=== PATIENT | male | born 1935 | race Caucasian/White ===

== ENCOUNTER 2020-12-25 18:50 | Inpatient (IN) | payer MEDICARE, OTHER, SELFPAY ==
--- NOTE | 2020-12-18 09:16 | EKG12_ITS ---
Test Reason : PRE OP Blood Pressure : / mmHG Vent. Rate : 066 BPM Atrial Rate : 066 BPM P-R Int : 142 ms QRS Dur : 082 ms QT Int : 398 ms P-R-T Axes : -18 001 026 degrees QTc Int : 417 ms Normal sinus rhythm Normal ECG Confirmed by YESSICA CARMONA, SHENG ([id number]), editor at large ALEENA RIVERA ([id number]) on 12/22/2020 8:57:33 AM Referred By: Rusty Miles Confirmed By:DAVIDA JUAN MD
[2020-12-18 10:37] LABS: Mean Corp Hgb Conc 33.3 g/dL (32-36); Mean Corpuscular Hgb 30.7 pg (27.0-32.0); Mean Corpuscular Volume 92.1 fL (80-94); Mean Platelet Vol. 12.5 fl (6.2-12.0); Platelet Count 138 K/mm3 (150-450); RBC Distribution Width CV 13.8 % (11.6-14.6); RBC Distribution Width SD 47.3 fl (35.1-43.9); Red Blood Count 4.56 M/mm3 (4.6-6.2); White Blood Count 6.4 K/mm3 (4.4-11.0)
[2020-12-18 10:49] LABS: International Normalized Ratio 1.1; Partial Thromboplast Time 31.6 Seconds (24.1-36.2); Prothrombin Time (Protime)PT. 13.2 SECONDS (11.7-14.9)
[2020-12-18 11:03] LABS: AST(SGOT) 32 U/L (15-37); Alanine Aminotransfer ALT/SGPT 42 U/L (16-61); Albumin, Serum 3.7 g/dL (3.2-5.0); Alkaline Phosphatase 89 U/L (45-117); Anion Gap 5 (5-15); BUN 18 mg/dL (7-18); BUN/Creat Ratio 27.4 RATIO (10-20); Bilirubin, Direct 0.27 mg/dL (0.00-0.30); Calcium,Total 9.3 mg/dL (8.5-10.1); Chloride 105 mmol/L (98-107); Creatinine, Serum 0.66 mg/dL (0.70-1.30); EST Glomerular Filtration Rate 123 mL/min (>60); Est Glom Filt Rate - Afr Amer 149 mL/min (>60); Globulin 3.7 g/dL (2.2-4.2); Glucose 109 mg/dL (74-106); Potassium 4.2 mmol/L (3.5-5.1); Protein, Total 7.4 g/dL (6.4-8.2); Sodium Level 141 mmol/L (136-145)
[2020-12-24] VITALS (10 sets, daily range): BP systolic 131–157; BP diastolic 64–83; PULSE 63–77; RESP 14–16; TEMP 36.6–36.8; O2SAT 92–100; BMI 38.5
--- NOTE | 2020-12-24 | PROS_PTH ---
PATIENT: RENATO RANGEL LOC: [facility] U#:[id number] AGE/SX: 85/M ROOM: SC317 RE12/25/[address]: Dr. Rusty Miles MD : 1935 BED: 1 DIS: 12/26/2020 SPEC #: [id number] RECD: 12/25/20 06:54 STATUS: KASSIDY MUSTAFA #: [id number] VIRA: 12/24/20 00:[address]: Rusty Miles DEPT: SURGICAL PATHOLOGY RECD BY: Sundar Quiles ENTERED: 12/25/20 08:22 SP TYPE: TURP OTHR DR: Dr. Socrates Irving MD Tissues: Prostate, NOS Procedures: Surgery Specimen Level IV HEADER OPERATION: Cysto, TUR prostate, Olympus PRE-OP DIAGNOSIS: BPH with obstruction TISSUE SUBMITTED: Prostate tissue MICROSCOPIC DIAGNOSIS Prostate tissue, TUR: Benign prostatic hyperplasia, glandular and stromal type. Focal mild chronic inflammation. SJ:kleber 12/26/2020 MICROSCOPIC DESCRIPTION Slides are reviewed. GROSS DESCRIPTION Received is one container labeled with the patient's name and designated prostate tissue. The specimen consists of multiple irregular fragments of pink-bajwa, rubbery, soft tissue that in aggregate weigh 21.1 gm and measure in aggregate 7 x 7 x 2.5 cm. Sustainability Coordinator tissue is submitted in 12 cassettes. / EARL:kleber 12/25/20 TC:5 CPT: 56343
[2020-12-24] MEDS: Lactated Ringers 1,000 ML 100 ML IV (10:06)
[2020-12-24] MEDS: Lubricating Jelly 60 GM Tube 30 GM TOPICAL (11:41)
[2020-12-24] MEDS: Cefazolin 2 GM in 0.9% Normal Saline 100 ML IV (11:45)
--- NOTE | 2020-12-24 12:58 | PCM.HP.STD ---
HPI - General HPI Narrative RENATO RANGEL, is a 85 M who presents significant BPH and obstruction today presents for transurethral resection of the prostate [facility] Medical History (Updated 12/24/20 @ 12:[address] Rusty Miles MD) Easy bruising Former smoker Hearing impairment High cholesterol History of COVID-19 History of echocardiogram Hypertension Prostate disease TIA (transient ischemic attack) Trigeminal neuralgia Wears glasses Home Medications B12 Active 1,000 mcg PO QHS 12/17/20 [History Last Taken Unknown] amlodipine 5 mg PO DAILY 12/17/20 [History Last Taken 12/24/20] aspirin 81 mg PO QHS 12/17/20 [History Last Taken 12/23/20] atorvastatin 40 mg PO QHS 12/17/20 [History Last Taken Unknown] baclofen 10 mg PO QHS 12/17/20 [History Last Taken Unknown] finasteride 5 mg PO QHS 12/17/20 [History Last Taken Unknown] gabapentin 600 mg PO TID 12/17/20 [History Last Taken 12/24/20] iron 1 tab PO DAILY 12/17/20 [History Last Taken Unknown] ciprofloxacin HCl [Cipro] 500 mg PO BID #14 tab 12/24/20 [Rx Last Taken Unknown] Allergy/AdvReac Type Severity Reaction Status Date / Time No Known Allergies Allergy Verified 12/24/20 09:42 Surgical History (Updated 12/17/20 @ 12:58 by Niurka Iqbal) History of appendectomy History of colonoscopy History of hernia repair History of melanoma excision Social History Smoking Status: Former smoker ROS Constitutional Constitutional: Denies chills, fever(s) or malaise Eyes Eyes: Denies blurry vision or change in vision ENT HEENT: Reports none Cardiovascular Cardiovascular: Denies chest pain or palpitations Respiratory/Chest Respiratory/Chest: Denies cough or shortness of breath with exertion Gastrointestinal Gastrointestinal: Denies abdominal pain, constipation or diarrhea Musculoskeletal Musculoskeletal: Denies back pain, joint stiffness or joint swelling Integumentary Integumentary: Denies dry skin, jaundice, lesions or rash Neurologic Neurologic: Denies confusion, syncope or weakness Psychiatric Psychiatric: Reports none; Denies anxiety or depression Endocrine Endocrinology: Denies excessive sweating, fatigue or flushing Hematologic/Lymphatic Hematologic/Lymphatic: Denies anemia, easy bleeding or easy bruising Vital Signs Vital Signs Vital Signs: 12/24/20 09:44 Temperature 98.2 F Temperature Source Temporal Pulse Rate 71 Respiratory Rate 16 Respiratory Pattern Normal Blood Pressure 146/83 H Blood Pressure Mean 104 Blood Pressure Source Monitor Blood Pressure Position Semi-Fowlers Blood Pressure Location Left Arm Pulse Ox 97 Oxygen Delivery Method Room Air Weight Weight: 118.4 kg Body Mass Index (BMI) 38.5 Physical Exam Const alert and oriented x3 General Appearance: cooperative HEENT normocephalic, head/scalp atraumatic, EAC's normal and TM's normal bilaterally Eyes PERRL and EOMs intact bilaterally Pupil: sluggish Neck no lymphadenopathy, supple and no JVD General: trachea midline Lymph Lymphatic: no lymphadenopathy noted, lymphedema and lymphadenopathy Resp normal respiratory effort, normal air movement and clear to auscultation bilaterally Cardio regular rate, regular rhythm and peripheral pulses 2+ throughout GI soft to palpation, non-tender and non-distended Extremity normal capillary refill and no clubbing, cyanosis or edema General Extremity: no tenderness to palpation of joints or extremities Skin no rashes or lesions noted General Skin Exam: turgor normal Lesions: no lesions Rashes: no rashes Neuro CN's II-XII intact bilaterally Speech: speech normal Motor Exam: strength 5/5 throughout; Negative for general weakness Psych thought process normal, cooperative and affect normal Appearance: appropriate Results Lab / Micro Data Result Diagrams: 12/18/20 09:27 12/18/20 09:27 Assessment & Plan Assessment/Plan (1) BPH w urinary obs/LUTS: PLAN: Plan for TURP
--- NOTE | 2020-12-24 12:59 | PCM.DC ---
Discharge Instructions Diet Discharge Diet: No restrictions Activity Discharge Activity: Return to Normal Activity and May Not Drive (while taking narcotic pain medications.) Dressing / Incision Call your doctor if your incision/area has: Continuous Slow Oozing, Increased Pain/ Swelling, Increased Redness and Foul Smelling Discharge Call your doctor if you observe: Fever of 101 or Higher, Numbness or Tingling, Shortness of breath, Dizziness, Calf discomfort and Uncontrolled pain Follow Up Care Please Follow Up With: Rusty Miles MD When: Call [phone] for an appointment Test Results: Test results from this visit will be discussed in further detail at your follow-up appointment, if applicable. Discharge Plan Admission Primary Reason for Your Visit: vicki Attending Provider: Rusty Miles Primary Care Provider: Socrates Irving Discharge Orders/Prescriptions Prescriptions: New ciprofloxacin HCl [Cipro] 500 mg tablet 500 mg PO BID Qty: 14 RF: 0 Continued atorvastatin 40 mg tablet 40 mg PO QHS RF: 0 gabapentin 600 mg tablet 600 mg PO TID RF: 0 iron 50 mg iron Tablet 1 tab PO DAILY RF: 0 amlodipine 5 mg tablet 5 mg PO DAILY RF: 0 baclofen 10 mg tablet 10 mg PO QHS RF: 0 aspirin 81 mg Tablet 81 mg PO QHS RF: 0 finasteride 5 mg tablet 5 mg PO QHS RF: 0 B12 Active 1,000 mcg Tablet,Chewable 1,000 mcg PO QHS RF: 0 Referrals / Follow Up: Socrates Irving MD [Primary Care Provider] - Rusty Miles MD [STAFF PHYSICIAN] - Disposition Disposition (needs filled in before D/C Order can be placed): Home, Self Care
--- NOTE | 2020-12-24 13:00 | PCM.OPRPT ---
Report of Operation Date of Procedure: 12/24/20 Pre-Operative Diagnosis: BPH with obstruction Post-Operative Diagnosis: Same Surgery/Procedure Performed:: Transurethral section prostate Description of Surgical Findings:: In the preoperative setting I discussed with the patient how the surgery would be done with expect afterwards. We discussed how a prostate resection is done and we discussed the risk of the surgery including, bleeding, infection, retrograde ejaculation, changes with ejaculation or intercourse,. We discussed the possibility that the resection of the prostate may not alleviate his urinary symptoms. We discussed the small risk of developing scar tissue along the urethral channel and strictures. We also discussed the chance of the prostate could grow back and he may need further surgery or treatment in the future for prostate problems. Patient was taken back to the operating room, timeout procedure was performed, he was identified and marked and placed on the operating room table. He underwent general anesthesia. He was placed in dorsolithotomy position. Penis and testicles were prepped and draped in usual sterile fashion. Went into the bladder using the visual obturator with a resectoscope. Once inside the bladder identified the right and left ureteral orifice. I then identified the prostate and the anatomy of the prostate. I marked out the area of the sphincter and the verumontanum was identified. I then proceeded with the prostate resection first resected the median lobe. And then resected the right lobe of the prostate. Then to resect the left lobe of the prostate. I then resected the apical tissue of the prostate. Made sure that there was no injury to the sphincter or the verumontanum was still intact. At the end of the resection all the chips were Ellik out of the bladder. I then identified the left and right ureteral orifice and these were confirmed to be in good position and effluxing and not injured. The resectoscope was removed, a 22 Armenian catheter was placed into the bladder on continuous irrigation. And the urine was fairly light pink color and draining normally. He was taken back to the PACU in good condition. Surgeon: Rusty Miles Type of Anesthesia: General Drains: 22fr [address] way Complications none Admit VTE Documentation VTE Present on Admission: No VTE Mechan Device Prophylaxis: SCD's
[2020-12-24] MEDS: Lactated Ringers 1,000 ML 125 ML IV ×2 (14:00→18:38)
[2020-12-24] MEDS: Gabapentin 600 MG Tablet PO ×2 (15:39→16:22)
[2020-12-24] MEDS: Ciprofloxacin 400 MG/200 ML BAG 200 MG IV (19:55)
[2020-12-24] MEDS: Gabapentin 600 MG Tablet 1200 MG PO (21:19)
[2020-12-24] MEDS: Baclofen 10 MG Tablet PO (21:19)
[2020-12-24] MEDS: Atorvastatin Calcium 40 MG Tablet PO (21:19)
[2020-12-25 03:00] VITALS: BP 154/74; PULSE 64; RESP 18; TEMP 36.6; O2SAT 96
[2020-12-25] MEDS: Lactated Ringers 1,000 ML 125 ML IV (03:28)
[2020-12-25] MEDS: Gabapentin 600 MG Tablet 1200 MG PO ×3 (05:36→22:43)
[2020-12-25] MEDS: Ciprofloxacin 400 MG/200 ML BAG 200 MG IV (07:19)
[2020-12-25] MEDS: amLODIPine 5 MG Tablet PO (07:19)
[2020-12-25 07:32] VITALS: BP 132/68; PULSE 63; RESP 16; TEMP 36.6; O2SAT 98
--- NOTE | 2020-12-25 07:43 | PCM.PN.BLA ---
Progress Note urine still bloody will have nursing staff slow CBI today if possible once bleeding stop may d/c kuhn
[2020-12-25 11:28] VITALS: BP 129/63; PULSE 65; RESP 16; TEMP 36.6; O2SAT 96
[2020-12-25] MEDS: Ferrous Sulfate 325 MG Tablet PO (14:07)
[2020-12-25 14:47] VITALS: BP 143/65; PULSE 68; RESP 14; TEMP 36.5; O2SAT 96
--- NOTE | 2020-12-25 18:00 | NURSING ---
1645-cbi clamped. urine clear lt red, no clots.
--- NOTE | 2020-12-25 18:47 | NURSING ---
attempted to change to inpatient as of 1814. msg at [phone] (dr javier), that i was calling from [facility] [place] and needed assistance with a status change, i would be leaving shortly but he could speak w/charge nurse jimbo and left unit phone #
[2020-12-25 21:00] VITALS: BP 148/62; PULSE 66; RESP 18; TEMP 36.6; O2SAT 98
[2020-12-25] MEDS: Atorvastatin Calcium 40 MG Tablet PO (22:43)
[2020-12-25] MEDS: Cyanocobalamin 500 MCG Tablet 1000 MCG PO (22:43)
[2020-12-25] MEDS: Baclofen 10 MG Tablet PO (22:43)
[2020-12-25] MEDS: Aspirin 81 MG TAB.CHEW PO (22:44)
[2020-12-25] MEDS: Psyllium 1 PACKET PO (22:46)
[2020-12-26 03:00] VITALS: BP 138/60; PULSE 86; RESP 16; TEMP 36.4; O2SAT 97
[2020-12-26] MEDS: Gabapentin 600 MG Tablet 1200 MG PO ×2 (06:04→13:27)
--- NOTE | 2020-12-26 06:37 | PCM.PN.BLA ---
Progress Note Status post TURP Wakefield catheter removed yesterday in the evening he has been urinating okay. A little bit of urge incontinence but this is expected after surgery. He should be will go home today without a catheter.
[2020-12-26 07:26] VITALS: BP 134/66; PULSE 70; RESP 18; TEMP 36.6; O2SAT 100
[2020-12-26] MEDS: amLODIPine 5 MG Tablet PO (07:37)
[2020-12-26] MEDS: Psyllium 1 PACKET PO (07:39)
--- NOTE | 2020-12-26 10:20 | CASEMGMT ---
RN CM Face to Face with patient for initial transition planning/care coordination assessment. RN CM introduced self and role at [facility]. Patient sitting in chair, alert and oriented, at bedside. Patient willing to participate in assessment and is able to answer all questions appropriately. Care providers, pharmacy, and demographics verified. Patient wishes to discharge home, denies need for home health at this time. Patient states he has no further needs or concerns at this time. CM to follow for discharge planning needs that may arise. PCP: Maria Fernanda Specialists: [facility] Pharmacy: [facility] Insurance: [facility], [employer] Prescription Benefit: yes Living Will/HPOA: yes son Wander Olivo LNOK: Living Arrangements: Patient lives with in a single story home with 3 steps and grab bar to enter. Patient states he is independent at home. Transportation: self/ DME/HHC: patient states he has cane, walker, and grab bars at home. Patient denies previous HHC. Disposition Plan: Patient to discharge home with family support and follow-up plans in place. Louise DE LOS SANTOS, RN, CM
[2020-12-26] MEDS: Ferrous Sulfate 325 MG Tablet PO (12:36)
[2020-12-26 13:29] VITALS: BP 127/55; PULSE 69; RESP 18; TEMP 36.6; O2SAT 98
== END 2020-12-26 14:02 | disposition home or self-care (01) | DRG 713 ==
LOC: SDC 19:13 → MS3 19:17
PROVIDERS: Anesthesiology; Admitting Provider Urology; PCP Family Medicine; Referring Provider Urology; Visit Provider Urology
PROC: 0VT08ZZ Resection of Prostate, Via Natural or Artificial Opening Endoscopic (ICD-10-PCS; principal; 2020-12-24 11:40)
DX: N40.1 Benign prostatic hyperplasia with lower urinary tract symptoms (principal); N13.8 Other obstructive and reflux uropathy; I10 Essential (primary) hypertension; E78.00 Pure hypercholesterolemia, unspecified; G50.0 Trigeminal neuralgia; Z86.73 Personal history of transient ischemic attack (TIA), and cerebral infarction without residual deficits; Z86.16 Personal history of COVID-19; Z85.820 Personal history of malignant melanoma of skin; Z87.891 Personal history of nicotine dependence; Z79.82 Long term (current) use of aspirin; Z79.899 Other long term (current) drug therapy
CPT/HCPCS: 36415; 80048; 80076; 85027; 85610; 85730; 88305; 93005; 99251; J7120; G0463; J0744; J2405

== ENCOUNTER 2020-12-27 13:40 | Emergency (ER) | payer MEDICARE, OTHER, SELFPAY ==
[2020-12-24 15:32] VITALS: BMI 38.5
[2020-12-27 13:42] VITALS: BP 151/69; PULSE 77; RESP 16; TEMP 36.7; O2SAT 98; BMI 39.5
--- NOTE | 2020-12-27 14:14 | EX.ED.DYSGE1 ---
HPI History of Present Illness Chief Complaint: Wakefield C/O Detail of Chief Complaint: Wakefield catheter leaking Informant: patient Onset/Context/Timing Onset: Today Location: Around the catheter Current Severity: Mild Worsened by: Clots Relieved by: Nothing Associated Symptoms Associated Symptoms: None Narrative Narrative: Patient is status post TURP by Dr. Miles. 20-gauge Wakefield catheter in place. This is blocked and he is leaking around the catheter. Prior similar symptoms: No PFSH PFSH Medical History Easy bruising Former smoker Hearing impairment High cholesterol History of COVID-19 History of echocardiogram Hypertension Prostate disease TIA (transient ischemic attack) Trigeminal neuralgia Wears glasses Home Medications B12 Active 1,000 mcg PO QHS 12/17/20 [History Last Taken Unknown] amlodipine 5 mg PO DAILY 12/17/20 [History Last Taken 12/24/20] aspirin 81 mg PO QHS 12/17/20 [History Last Taken 12/23/20] atorvastatin 40 mg PO QHS 12/17/20 [History Last Taken Unknown] baclofen 10 mg PO QHS 12/17/20 [History Last Taken Unknown] finasteride 5 mg PO QHS 12/17/20 [History Last Taken Unknown] gabapentin 1,200 mg PO TID 12/17/20 [History Last Taken 12/24/20] iron 1 tab PO DAILY 12/17/20 [History Last Taken Unknown] ciprofloxacin HCl [Cipro] 500 mg PO BID #14 tab 12/24/20 [Rx Last Taken Unknown] Allergy/AdvReac Type Severity Reaction Status Date / Time No Known Allergies Allergy Verified 12/27/20 13:45 Surgical History History of appendectomy History of colonoscopy History of hernia repair History of melanoma excision S/P TURP Social History Smoking Status: Former smoker ROS ROS ED Constitutional Constitutional ED: Denies chills or fever(s) Eyes Eyes: Denies change in vision ENT ENT ED: Denies ear pain Cardiovascular Cardiovascular: Denies chest pain Respiratory/Chest Respiratory/Chest: Denies dyspnea Gastrointestinal Gastrointestinal: Denies abdominal pain Genitourinary Genitourinary ED: Denies dysuria, hematuria or urinary frequency Musculoskeletal Musculoskeletal: Denies myalgias Integumentary Denies rash Neurologic Neurologic: Denies headache(s) Psychiatric Psychiatric: Denies depression Endocrine Endocrinology: Denies polyuria Allergic/Immunologic Allergic/Immunologic ED: Denies urticaria EXAM Physical Exam Const Vital Signs: 12/27/20 13:42 Temperature 98.1 F Temperature Source Temporal Pulse Rate 77 Respiratory Rate 16 Blood Pressure 151/69 H Blood Pressure Mean 96 Pulse Ox 98 Oxygen Delivery Method Room Air Positive well nourished and well developed General Appearance ED: well developed HEENT Negative for trauma or tenderness Eyes EOMs intact bilaterally Neck supple Resp normal respiratory effort Cardio regular rate GI normal to inspection, nondistended, normoactive bowel sounds and non-tender Palpation: soft Narrative: Small clots in his Wakefield catheter bag, currently flowing freely with clear yellow urine Back/Spine no CVA tenderness Extremity normal to inspection Neuro oriented x3 Sensorium / Orientation: alert Psych mental status grossly normal Skin no rashes or lesions noted MDM MDM MDM Narrative Medical decision making narrative: Nursing irrigated the catheter. This did drain several clots. On reevaluation, urine is flowing freely, clear and yellow. I did discuss with Dr. Miles. Patient will be given a syringe to irrigate at home. Follow-up in the office on Tuesday or Tuesday for removal. Discharge Plan Triage Chief Complaint: Wakefield C/O ED Provider: Carlton Howell Dx/Rx/DC Orders Clinical Impression: Obstructed Wakefield catheter Instructions: ED Wakefield Catheter, Care Prescriptions: No Action atorvastatin 40 mg tablet 40 mg PO QHS RF: 0 gabapentin 600 mg tablet 1,200 mg PO TID RF: 0 iron 50 mg iron Tablet 1 tab PO DAILY RF: 0 amlodipine 5 mg tablet 5 mg PO DAILY RF: 0 baclofen 10 mg tablet 10 mg PO QHS RF: 0 aspirin 81 mg Tablet 81 mg PO QHS RF: 0 finasteride 5 mg tablet 5 mg PO QHS RF: 0 B12 Active 1,000 mcg Tablet,Chewable 1,000 mcg PO QHS RF: 0 ciprofloxacin HCl [Cipro] 500 mg tablet 500 mg PO BID Qty: 14 RF: 0 Primary Care Provider: Socrates Irving Referrals: Rusty Miles MD [STAFF PHYSICIAN] - Disposition Disposition: Home, Self Care
[2020-12-27 14:42] VITALS: RESP 17
== END 2020-12-27 14:40 | disposition home or self-care (01) ==
PROVIDERS: Emergency Provider Emergency Medicine; PCP Family Medicine
DX: T83.091A Other mechanical complication of indwelling urethral catheter, initial encounter (principal); I10 Essential (primary) hypertension; E78.00 Pure hypercholesterolemia, unspecified; G50.0 Trigeminal neuralgia; Z86.73 Personal history of transient ischemic attack (TIA), and cerebral infarction without residual deficits; Z85.820 Personal history of malignant melanoma of skin; Z79.82 Long term (current) use of aspirin; Z79.899 Other long term (current) drug therapy; Z87.891 Personal history of nicotine dependence
CPT/HCPCS: 99282